=== PATIENT | female | born 1980 | race Caucasian/White ===

== ENCOUNTER 2017-11-26 06:21 | Day surgery (SDC) | payer BC ==
[2017-11-26] MEDS ORDERED: CEFAZOLIN 2 GM/50 ML (PMX) 50 ML IVPB (07:30)
[2017-11-26] MEDS ORDERED: PROPOFOL 20 ML (07:55)
[2017-11-26] MEDS ORDERED: METOCLOPRAMIDE 10 MG INJ (07:55)
[2017-11-26] MEDS ORDERED: KETOROLAC 30 MG INJ (07:55)
[2017-11-26] MEDS ORDERED: ROPIVACAINE 0.5 % 30 ML VIAL (07:55)
[2017-11-26] MEDS ORDERED: ROCURONIUM 50 MG INJ (07:55)
[2017-11-26] MEDS ORDERED: GLYCOPYRROLATE 0.4 MG INJ (07:55)
[2017-11-26] MEDS ORDERED: MIDAZOLAM 1 MG/ML 2 ML INJ (07:55)
[2017-11-26] MEDS ORDERED: NEOSTIGMINE 3 MG/3 ML SYRINGE (07:55)
[2017-11-26] MEDS ORDERED: DEXAMETHASONE 4 MG/ML 1 ML INJ (07:55)
[2017-11-26] MEDS ORDERED: CEFAZOLIN 1 GM INJ (07:58)
[2017-11-26] MEDS ORDERED: ACETAMINOPHEN 1000MG/100ML IV 100 ML (07:58)
[2017-11-26] MEDS ORDERED: LIDOCAINE 2% JELLY 5 ML (07:59)
[2017-11-26] MEDS ORDERED: FENTAnyl 50 MCG/ML VIAL (08:26)
[2017-11-26] MEDS: POLYMYXIN/BACITRACIN 1L IRRIG (09:02)
[2017-11-26] MEDS: BUPIVACAINE 0.5%/EPI (SDV) 30 ML INJ (09:02)
[2017-11-26] MEDS: LIDOCAINE 1% (MPF) 30 ML INJ (09:03)
[2017-11-26] MEDS ORDERED: HYDROmorphONE 2 MG/ML SYG (09:15)
[2017-11-26] MEDS ORDERED: MEPERIDINE 25 MG INJ IV (09:30)
[2017-11-26] MEDS ORDERED: DIPHENHYDRAMINE 50 MG INJ IV (09:30)
[2017-11-26] MEDS ORDERED: ONDANSETRON 4 MG INJ IV ×2 (09:30→10:30)
[2017-11-26] MEDS ORDERED: KETOROLAC 30 MG INJ IV (09:30)
[2017-11-26] MEDS ORDERED: HYDROmorphONE 1 MG/5 ML IV SYRINGE IV ×3 (09:30)
[2017-11-26] MEDS ORDERED: morphine 2 MG INJ IV (10:30)
[2017-11-26] MEDS ORDERED: HYDROCODONE/APAP (5/325) TAB PO ×2 (10:30)
== END 2017-11-26 11:50 | disposition home or self-care (01) ==
LOC: SDS 06:21
DX: K43.9 Ventral hernia without obstruction or gangrene (principal)
CPT/HCPCS: 49652

== ENCOUNTER 2017-12-02 00:35 | Emergency (ER) | payer BC ==
[2017-12-02] MEDS: SOD CHLORIDE 0.9% 1,000 ML IV ×2 (01:24→02:43)
[2017-12-02] MEDS: ONDANSETRON 4 MG INJ IV (01:24)
[2017-12-02 01:27] LABS: ADD MAN DIFF? NO
[2017-12-02 01:29] LABS: WHITE BLOOD COUNT 11.9 10^3/ul (4.8-10.8)
[2017-12-02 01:30] LABS: BASOPHIL # 0.1 10^3/ul (0.0-0.1); BASOPHILS % 0.4 % (0.0-2.0); EOSINOPHILS # 0.1 10^3/ul (0.0-0.5); HEMATOCRIT 38.4 % (37.0-47.0); HEMOGLOBIN 13.2 g/dl (12.0-16.0); LYMPHOCYTES # 3.1 10^3/ul (0.8-2.9); LYMPHOCYTES % 26.4 % (15.0-51.0); MEAN CORPUSCULAR HEMOGLOBIN 31.9 pg (29.0-33.0); MEAN CORPUSCULAR HGB CONC 34.4 g/dl (32.0-37.0); MEAN CORPUSCULAR VOLUME 92.8 fl (82.0-101.0); MEAN PLATELET VOLUME 9.6 fl (7.4-10.4); MONOCYTE # 1.1 10^3/ul (0.3-0.9); NEUTROPHIL # 7.5 10^3/ul (1.6-7.5); NEUTROPHILS % 62.9 % (39.0-77.0); PLATELET COUNT 218 10^3/UL (140-415); RED BLOOD COUNT 4.14 10^6/ul (4.20-5.40); RED CELL DISTRIBUTION WIDTH 11.8 % (11.5-14.5)
[2017-12-02 02:04] LABS: ALANINE AMINOTRANSFERASE 41 IU/L (13-69); ALBUMIN/GLOBULIN RATIO 1.25; ALKALINE PHOSPHATASE 33 IU/L (42-121); ANION GAP 14 (8-16); ASPARTATE AMINO TRANSFERASE 85 IU/L (15-46); BILIRUBIN,INDIRECT 0.4 mg/dl (0-1.1); BILIRUBIN,TOTAL 0.4 mg/dl (0.2-1.3); BLOOD UREA NITROGEN 10 mg/dl (7-20); CALCIUM 8.6 mg/dl (8.4-10.2); CARBON DIOXIDE 26 mmol/L (21-31); CHLORIDE 106 mmol/L (97-110); CREATININE 0.98 mg/dl (0.44-1.00); GLUCOSE 115 mg/dl (70-220); LIPASE 209 U/L (23-300); POTASSIUM 4.2 mmol/L (3.5-5.1); SODIUM 142 mmol/L (135-144); TOTAL PROTEIN 7.2 g/dl (6.1-8.1)
[2017-12-02 03:17] LABS: ADD UMIC NO; UR ASCORBIC ACID NEGATIVE (NEGATIVE); UR BILIRUBIN (Dip) NEGATIVE (NEGATIVE); UR BLOOD (Dip) NEGATIVE (NEGATIVE); UR CLARITY CLEAR (CLEAR); UR COLOR STRAW (YELLOW); UR GLUCOSE (Dip) NEGATIVE (NEGATIVE); UR KETONES (Dip) NEGATIVE (NEGATIVE); UR LEUKOCYTE ESTERASE (Dip) NEGATIVE Leu/ul (NEGATIVE); UR NITRITE (Dip) NEGATIVE (NEGATIVE); UR SPECIFIC GRAVITY (Dip) 1.004 (1.003-1.030); UR TOTAL PROTEIN (Dip) NEGATIVE (NEGATIVE); UR UROBILINOGEN (Dip) NEGATIVE (NEGATIVE)
[2017-12-02] MEDS: MAGNESIUM CITRATE 300 ML BTL PO (04:03)
[2017-12-02] MEDS ORDERED: KETOROLAC 30 MG INJ IV (04:05)
[2017-12-02] MEDS: morphine 4 MG/ML VIAL IV (04:24)
== END 2017-12-02 04:53 | disposition home or self-care (01) ==
LOC: E/R 00:35
DX: K59.00 Constipation, unspecified (principal); R40.2142 Coma scale, eyes open, spontaneous, at arrival to emergency department; R40.2252 Coma scale, best verbal response, oriented, at arrival to emergency department; R40.2362 Coma scale, best motor response, obeys commands, at arrival to emergency department
CPT/HCPCS: 36415; 74177; 80053; 81003; 81025; 83690; 85025; 96374; 96375; 99285-25